=== PATIENT | male | born 1935 | race Caucasian/White ===

== ENCOUNTER 2022-07-10 19:03 | Emergency (ER) | payer MEDICARE, OTHER ==
[2022-07-10] MEDS ORDERED: Sodium Chloride 0.9% 10 ML Syringe FLUSH PRN (19:47)
[2022-07-10] MEDS ORDERED: Sodium Chloride 0.9% 1,000 ML IV SCH (20:00)
[2022-07-10] MEDS: Morphine 4 MG/ML Syringe IVPUSH PRN ×2 (20:08→21:56)
[2022-07-10 20:20] LABS: ANION GAP 14.2 mmol/L (5-15); CHLORIDE,CL 98 mmol/L (98-107); ESTIMATED GFR 84 mL/min (>=60); SODIUM,NA 135 mmol/L (136-145)
== END 2022-07-10 22:00 | disposition short-term general hospital (02) ==
LOC: VM.ED 19:03
DX: S72.041A Displaced fracture of base of neck of right femur, initial encounter for closed fracture (principal); Z79.899 Other long term (current) drug therapy; Z20.822 Contact with and (suspected) exposure to COVID-19; W18.30XA Fall on same level, unspecified, initial encounter
CPT/HCPCS: 73020-RT; 80053; 85025; 96361; 96374; 96376; 99283; 99284-25; J2270; J7030; U0002